=== PATIENT | male | born 1970 | race Caucasian/White ===

== ENCOUNTER → 2016-12-29 | Outpatient (CLI) | payer MEDICAID | LOC: CIMAGING 10:29 | PROVIDERS: ATTEND Family Medicine | DX: S63.071A Subluxation of distal end of right ulna, initial encounter (principal) | CPT/HCPCS: 73110-PO ==

== ENCOUNTER → 2017-02-18 | Outpatient (CLI) | payer MEDICAID | LOC: FIMAGING 08:41 | PROVIDERS: ATTEND Family Medicine | DX: S63.591A Other specified sprain of right wrist, initial encounter (principal); M65.88 Other synovitis and tenosynovitis, other site ==

== ENCOUNTER → 2017-04-10 | Outpatient (CLI) | payer MEDICAID | LOC: CIMAGING 11:28 | PROVIDERS: ATTEND Family Medicine | DX: M25.552 Pain in left hip (principal); M53.3 Sacrococcygeal disorders, not elsewhere classified | CPT/HCPCS: 73502-PO; G0103 ==